=== PATIENT | female | born 1980 | race Caucasian/White ===

== ENCOUNTER 2018-11-22 15:59 | Inpatient (IN) ==
[2018-11-22] MEDS ORDERED: Isovue-370 500 ML INFUS..BTL IV ONE (16:09)
--- NOTE | 2018-11-22 16:10 | Emergency Department Note ---
Disposition Clinical Impression: Pleural effusion, Acute and chronic respiratory failure, Anxiety, Chronic anemia, Metastatic breast cancer, COPD with exacerbation Disposition: Admitted As Inpatient Condition: Undetermined General Adult HPI - General Chief complaint: ED Shortness of Breath/Dyspnea Stated complaint: JUSTIN Time Seen by Provider: 11/22/18 16:01 - Related Data Home Medications Medication Instructions Recorded Confirmed RX: Budesonide/Formoterol 80/4.5 1 puff PO BID 11/01/18 11/16/18 [Symbicort 80/4.5] Magnesium Oxide [Magnesium] 400 mg PO DAILY 11/16/18 11/16/18 Spironolactone [Aldactone] 25 mg PO DAILY 11/16/18 11/16/18 Previous Rx's Medication Instructions Recorded RX: Aspirin Enteric Coated 81 mg PO DAILY tablet. 11/06/18 [Aspirin EC] RX: Diltiazem CD (24hr) [Cardizem 240 mg PO DAILY #30 cap.er.24h 11/06/18 CD] ALPRAZolam [Xanax 0.25 MG Tablet] 0.25 mg PO Q8HR PRN 30 Days #90 11/16/18 tablet Docusate [Colace] 100 mg PO BID PRN #60 capsule 11/16/18 HYDROcodone/Acet 7.5/325 mg [[place] 1 tab PO TID 30 Days #90 tablet 11/16/18 7.5-325 mg] Prochlorperazine Maleate 10 mg PO Q8HR PRN 30 Days #90 11/16/18 [Compazine] tablet RX: Ondansetron [Zofran] 8 mg PO Q8HR 30 Days #90 tablet 11/16/18 ALPRAZolam [Xanax 0.5 MG Tablet] 0.5 mg PO TID PRN 30 Days #90 11/22/18 tablet Diaper,Brief,Adult, Disposable 1 each MC PRN PRN #1 pkg 11/22/18 [Depend Fit-Flex] Allergies Allergy/AdvReac Type Severity Reaction Status Date / Time adhesive tape Allergy Redness of Verified 11/16/18 12:49 Skin Past Medical History - Past Medical History Medical history: Reports: cancer Psychiatric history: Reports: no psych history - Social History Smoking Status: Former smoker Smokeless Tobacco Status: No Alcohol use: Reports: none Drug use: Reports: none Course Vital Signs Temperature 97.8 F 11/22/18 16:06 Pulse Rate 117 11/22/18 16:06 Respiratory Rate 22 11/22/18 16:06 Blood Pressure 164/97 11/22/18 16:06 O2 Sat by Pulse Oximetry 88 11/22/18 16:06 Temperature 97.8 F 11/22/18 16:06 Pulse Rate 111 11/22/18 21:46 Respiratory Rate 14 11/22/18 21:46 Blood Pressure 145/86 11/22/18 21:46 O2 Sat by Pulse Oximetry 97 11/22/18 21:46 Oxygen Delivery Oxygen Delivery Bipap Medical Decision Making - Lab Data Result diagrams: 11/22/18 21:24 11/22/18 16:09 Lab Results 11/22/18 11/22/18 11/22/18 Range/Units 16:09 16:09 21:24 WBC 3.5 L 4.7 (4.3-11.1) K/mcL RBC 3.77 L 3.78 L (3.82-4.97) M/mcL Hgb 9.8 L 9.7 L (11.5-15.4) g/dL Hct 32.5 L 32.7 L (35.3-44.9) % MCV 86.2 86.5 (83.0-100.0) fL MCH 26.0 L 25.7 L (28.0-33.3) pg MCHC 30.2 L 29.7 L (31.6-35.5) g/dL RDW 19.9 H 19.5 H (11.5-14.5) % Plt Count 156 162 (140-400) K/mcL MPV 9.7 10.2 (9.4-12.4) fL Immature Gran % 2.8 (0-4) % Seg Neutrophils % 84.7 % Lymphocytes % 7.7 % Monocytes % 4.5 % Eosinophils % 0.0 % Basophils % 0.3 % Neutrophils # 3.0 (1.6-8.9) K/mcL Lymphocytes # 0.3 L (0.6-4.6) K/mcL Monocytes # 0.2 (0.0-1.3) K/mcL Eosinophils # 0.0 (0.0-0.6) K/mcL Basophils # 0.0 (0.0-0.2) K/mcL PT (9.4-12.1) Seconds INR Heparin Anti-Xa, Unfract (0.30-0.70) IU/mL Sodium 138 (136-145) mEq/L Potassium 4.2 (3.5-5.1) mEq/L Chloride 99 (98-107) mEq/L Carbon Dioxide 32 H (23-29) mEq/L BUN 10 (6-20) mg/dL Creatinine 0.59 L (0.60-1.20) mg/dL Est GFR ( Amer) > 60 (> 60) Est GFR (Non-Af Amer) > 60 (> 60) BUN/Creatinine Ratio 17 (6-26) Glucose 119 H (70-105) mg/dL Calculated Osmolality 286 (280-300) Calcium 10.1 (8.6-10.3) mg/dL Troponin I 0.04 H* (< 0.04) ng/mL 11/22/18 Range/Units 21:24 WBC (4.3-11.1) K/mcL RBC (3.82-4.97) M/mcL Hgb (11.5-15.4) g/dL Hct (35.3-44.9) % MCV (83.0-100.0) fL MCH (28.0-33.3) pg MCHC (31.6-35.5) g/dL RDW (11.5-14.5) % Plt Count (140-400) K/mcL MPV (9.4-12.4) fL Immature Gran % (0-4) % Seg Neutrophils % % Lymphocytes % % Monocytes % % Eosinophils % % Basophils % % Neutrophils # (1.6-8.9) K/mcL Lymphocytes # (0.6-4.6) K/mcL Monocytes # (0.0-1.3) K/mcL Eosinophils # (0.0-0.6) K/mcL Basophils # (0.0-0.2) K/mcL PT 12.7 H (9.4-12.1) Seconds INR 1.1 Heparin Anti-Xa, Unfract 0.05 L (0.30-0.70) IU/mL Sodium (136-145) mEq/L Potassium (3.5-5.1) mEq/L Chloride (98-107) mEq/L Carbon Dioxide (23-29) mEq/L BUN (6-20) mg/dL Creatinine (0.60-1.20) mg/dL Est GFR ( Amer) (> 60) Est GFR (Non-Af Amer) (> 60) BUN/Creatinine Ratio (6-26) Glucose (70-105) mg/dL Calculated Osmolality (280-300) Calcium (8.6-10.3) mg/dL Troponin I (< 0.04) ng/mL Critical Care Time Critical Care Time: Yes Total Critical Care Time: 30 Attestation: The high probability of a clinically significant, sudden or life threatening deterioration of the [] system(s) required my full and direct attention, intervention and personal management. The aggregate critical care time was [] minutes. This time is in addition to time spent performing reported procedures but includes the following: [] Data Review and interpretation [] Patient assessment and monitoring of vital signs [] Documentation [] Medication orders and management Attestation Statement - Attestation Attestation: I examined this patient and my medical decision-making was reviewed with the Resident Physician. I agree with the documented findings, disposition and treatment plan as described except to the extent set forth below. [id number] time provided Patient arrives in the cancer center with dyspnea. She arrives by EMS. She was hypoxic prehospital. Upon arrival she has accessory muscle use for breathing. Increased work of breathing. Tachypnea and dyspnea noted. History of breast and lung cancer. Stat portable chest x-ray shows suspicion of a right-sided parapneumonic effusion. Trial of BiPAP therapy initiated
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
[2018-11-22] MEDS ORDERED: *HR* LORazepam 2 MG/ML VIAL IVP ONE (16:46)
[2018-11-22 17:08] LABS: Basophils % 0.3 %; Hematocrit 32.5 % (35.3-44.9); Hemoglobin 9.8 g/dL (11.5-15.4); Immature Granulocytes % 2.8 % (0-4); Lymphocytes # 0.3 K/mcL (0.6-4.6); Lymphocytes % 7.7 %; Mean Corpuscular HGB Conc 30.2 g/dL (31.6-35.5); Mean Corpuscular Volume 86.2 fL (83.0-100.0); Mean Platelet Volume 9.7 fL (9.4-12.4); Monocytes # 0.2 K/mcL (0.0-1.3); Monocytes % 4.5 %; Platelet Count 156 K/mcL (140-400); Red Blood Count 3.77 M/mcL (3.82-4.97); Red Cell Distribution Width 19.9 % (11.5-14.5); Segmented Neutrophils % 84.7 %
[2018-11-22 17:29] LABS: BUN/Creatinine Ratio 17 (6-26); Blood Urea Nitrogen 10 mg/dL (6-20); Calcium 10.1 mg/dL (8.6-10.3); Carbon Dioxide 32 mEq/L (23-29); Chloride 99 mEq/L (98-107); Glucose 119 mg/dL (70-105); Osmolality,Calculated 286 (280-300); Potassium 4.2 mEq/L (3.5-5.1); Sodium 138 mEq/L (136-145); eGFR For Non-African Americans > 60 (> 60)
[2018-11-22 17:46] LABS: Troponin I 0.04 ng/mL (< 0.04)
[2018-11-22] MEDS ORDERED: Aspirin 325 MG TABLET PO ONE (17:59)
[2018-11-22] MEDS ORDERED: Enoxaparin Weight Dosing SQ STA (18:04)
[2018-11-22] MEDS ORDERED: *HR* Enoxaparin 40 MG/0.4 ML SYRINGE SQ STA (18:09)
[2018-11-22] MEDS ORDERED: Furosemide 40 MG/4 ML VIAL IVP ONE (18:19)
[2018-11-22] MEDS ORDERED: *HR* Enoxaparin 120 MG/0.8 ML SYRINGE SQ STA (20:56)
[2018-11-22 21:36] LABS: Hematocrit 32.7 % (35.3-44.9); Hemoglobin 9.7 g/dL (11.5-15.4); Mean Corpuscular HGB Conc 29.7 g/dL (31.6-35.5); Mean Corpuscular Hemoglobin 25.7 pg (28.0-33.3); Mean Corpuscular Volume 86.5 fL (83.0-100.0); Mean Platelet Volume 10.2 fL (9.4-12.4); Platelet Count 162 K/mcL (140-400); Red Blood Count 3.78 M/mcL (3.82-4.97); Red Cell Distribution Width 19.5 % (11.5-14.5)
[2018-11-22 21:44] LABS: Heparin anti-factor XA UFH 0.05 IU/mL (0.30-0.70); INR 1.1; Prothrombin Time 12.7 Seconds (9.4-12.1)
[2018-11-22] MEDS: Heparin 25,000 UNIT/500 ML D5W 25,000 UNIT/500 ML BAG IVC SCH (22:08)
[2018-11-22] MEDS: *HR* Heparin 5,000 UNIT/ML VIAL IVP PRN (22:09)
[2018-11-22] MEDS ORDERED: Naloxone 0.4 MG/ML INJ IVP PRN (22:19)
[2018-11-22] MEDS ORDERED: Acetaminophen 325 MG TABLET PO PRN (22:19)
[2018-11-22] MEDS ORDERED: Albuterol 2.5 MG/3 ML NEBULIZER IH PRN (22:27)
[2018-11-22] MEDS ORDERED: Ondansetron 4 MG/2 ML VIAL IVP PRN (22:27)
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
[2018-11-23] MEDS: Ipratropium/Albuterol Neb 3 ML IH SCH ×4 (04:24→22:39)
[2018-11-23 05:03] LABS: Hemoglobin 9.5 g/dL (11.5-15.4); Immature Granulocytes % 0.7 % (0-4); Lymphocytes # 0.2 K/mcL (0.6-4.6); Lymphocytes % 3.4 %; Mean Corpuscular HGB Conc 29.7 g/dL (31.6-35.5); Mean Corpuscular Hemoglobin 25.9 pg (28.0-33.3); Mean Corpuscular Volume 87.2 fL (83.0-100.0); Mean Platelet Volume 10.8 fL (9.4-12.4); Monocytes # 0.3 K/mcL (0.0-1.3); Monocytes % 4.5 %; Neutrophils # 5.3 K/mcL (1.6-8.9); Nucleated Red Blood Cells 0.5 /100 WBC (0); Platelet Count 163 K/mcL (140-400); Red Blood Count 3.67 M/mcL (3.82-4.97); Red Cell Distribution Width 19.5 % (11.5-14.5); Segmented Neutrophils % 91.4 %
[2018-11-23 05:23] LABS: Alanine Aminotransferase 164 Units/L (7-52); Albumin 3.4 g/dL (3.5-5.7); Albumin/Globulin Ratio 1.2 (1.1-2.2); Alkaline Phosphatase 418 Units/L (34-104); Aspartate Amino Transferase 142 Units/L (13-39); BUN/Creatinine Ratio 22 (6-26); Bilirubin,Total 0.7 mg/dL (0.3-1.0); Blood Urea Nitrogen 13 mg/dL (6-20); Calcium 9.8 mg/dL (8.6-10.3); Carbon Dioxide 31 mEq/L (23-29); Chloride 98 mEq/L (98-107); Globulin 2.9 g/dL (2.4-3.5); Glucose 120 mg/dL (70-105); Magnesium 2.1 mg/dL (1.6-2.6); Osmolality,Calculated 287 (280-300); Potassium 4.2 mEq/L (3.5-5.1); Sodium 138 mEq/L (136-145); Total Protein 6.3 g/dL (6.4-8.9); eGFR For Non-African Americans > 60 (> 60)
[2018-11-23] MEDS ORDERED: *HR* Heparin 5,000 UNIT/ML VIAL IVP PRN (09:55)
[2018-11-23 10:31] LABS: Lactate Dehydrogenase 953 Units/L (140-271)
[2018-11-23] MEDS: *HR* Heparin 5,000 UNIT/ML VIAL IVP PRN (14:35)
--- NOTE | 2018-11-23 15:11 | Internal Med Progress Note ---
Hospitalist Progress Note - Encounter Date of Encounter: 11/23/18 Time of Encounter: 11:00 - Subjective Interval History: Patient continues to have significant shortness of breath and feels really anxious. At home she takes an extra which was prescribed by her oncologist for anxiety episodes. She is still not able to lie flat supine position. Remains on 15 L O2 supplementation. Denies any chest pain. Remains on IV heparin drip. - Exam Vitals: Temp Pulse Resp BP Pulse Ox 98.0 F 118 16 165/101 98 11/23/18 11:43 11/23/18 11:43 11/23/18 11:43 11/23/18 11:43 11/23/18 11:43 Exam: General: Patient is alert, severe distress, morbidly obese, oriented 3 ENT: Mucous membranes moist Respiratory: Bilateral wheezing, decreased breath sounds at both bases. Cardiovascular: Tachycardia. s1 and s2 normal No clicks, rubs, gallops, or murmurs. Bilateral pitting pedal edema Abdomen: Abdomen is soft, nontender. Bowel sounds are present Musculoskeletal: Spontaneously moving all extremities Skin: warm, dry, intact. Neuro: Alert oriented x 3 normal cranial nerves, no focal deficits - Assessment and Plan (1) Acute and chronic respiratory failure Current Visit: Yes Status: Acute Assessment and Plan: Acute on chronic respiratory failure. Most likely related to metastatic breast cancer with metastases to the lung. Patient has a solid mass for which she underwent radiation treatment before. Recommend CT scan of the chest but patient unable to lie in the supine position to obtain this study. Continue treatment symptomatically. Also given her history of cancer, high risk for venous thromboembolism. Venous Dopplers of the lower extremities were negative for DVT. Remains at high risk for complications (2) Metastatic breast cancer Current Visit: Yes Status: Chronic Assessment and Plan: Consulted oncology for recommendations. (3) Pleural effusion Current Visit: Yes Status: Chronic Assessment and Plan: Attempted thoracentesis on the right side today but unsuccessful. (4) Pulmonary embolism Current Visit: Yes Status: Suspected Assessment and Plan: Patient being treated with IV heparin due to high suspicion for PE. Venous Doppler of lower extremities negative for DVT. (5) DVT prophylaxis Current Visit: Yes Status: Acute (6) Pulmonary edema Current Visit: Yes Status: Acute Assessment and Plan: Chest x-ray showed pulmonary edema. We will continue Lasix. Mild troponin elevation trending down. Likely demand ischemia. Echocardiogram shows EF of 65-70%. (7) COPD (chronic obstructive pulmonary disease) Current Visit: Yes Status: Acute Assessment and Plan: Patient has bilateral wheezing. Continue bronchodilators. Also add Solu-Medrol as her rate due to respiratory failure could be related to COPD exacerbation also. DVT Prophylaxis: On IV heparin - Time Spent with Patient Total time spent is greater than 50% in coordination of care (as documented) at patient's floor/unit and/or counseling patient: Internal Medicine: Result - Labs CBC & Chem 7: 11/23/18 04:50 11/23/18 04:50 Labs: Short CBC 11/22/18 11/22/18 11/23/18 Range/Units 16:09 21:24 04:50 WBC 3.5 L 4.7 5.8 (4.3-11.1) K/mcL Hgb 9.8 L 9.7 L 9.5 L (11.5-15.4) g/dL Hct 32.5 L 32.7 L 32.0 L (35.3-44.9) % Plt Count 156 162 163 (140-400) K/mcL Neutrophils # 3.0 5.3 (1.6-8.9) K/mcL BMP 11/22/18 11/23/18 16:09 04:50 Sodium 138 138 Potassium 4.2 4.2 Chloride 99 98 Carbon Dioxide 32 H 31 H BUN 10 13 Creatinine 0.59 L 0.59 L Glucose 119 H 120 H Calcium 10.1 9.8 Cardiac Enzymes 11/22/18 11/22/18 11/23/18 Range/Units 16:09 22:30 04:50 Troponin I 0.04 H* 0.04 H* 0.03 (< 0.04) ng/mL Liver Function 11/23/18 Range/Units 04:50 Total Bilirubin 0.7 (0.3-1.0) mg/dL AST 142 H (13-39) Units/L ALT 164 H (7-52) Units/L Alkaline Phosphatase 418 H (34-104) Units/L Albumin 3.4 L (3.5-5.7) g/dL - ABG Interpretation ABG results: PT/INR, D-dimer PT 12.7 Seconds (9.4-12.1) H 11/22/18 21:24 - Impressions Impressions Chest X-Ray 11/22/18 16:01 IMPRESSION: 1. Moderate to large right-sided pleural effusion. 2. Radiographic findings suggesting increasing pulmonary edema within the left lung. D/ / Thad Hurt / Thad Hurt Interpreting Provider: Thad Hurt Echocardiogram 11/23/18 22:24 Impressions: LVEF 65-70%. Normal LV chamber size, wall thickness and function. Indeterminate diastolic function. Normal right ventricular structure and function. Unable to estimate RVSP due to lack of TR jet. No significant valvular dysfunction. Left Ventricular Wall Motion: Rest Echo Findings All wall segments showed normal motion. Findings: Study Quality * Technically sub-optimal due to clinical status. ECG Findings * Sinus tachycardia. Left Ventricle * LVEF 65-70%. * Normal LV chamber size, wall thickness and function. * Indeterminate diastolic function. Right Ventricle * Normal right ventricular structure and function. Left Atrium * Normal left atrial size. Right Atrium * Normal right atrial size. Aortic Valve * Aortic valve not well visualized. * No aortic regurgitation. * No aortic stenosis. Mitral Valve * Normal mitral valve structure and function. * No mitral stenosis. * No mitral regurgitation. Tricuspid Valve * Normal tricuspid valve structure and function. * No tricuspid regurgitation. * Unable to estimate RVSP due to lack of TR jet. Pulmonic Valve * Pulmonic valve not well visualized. Aorta * Normally sized aortic root. Pericardium * The pericardium appears normal. IVC * The IVC is not well evaluated. Pulmonary Artery * Pulmonary artery not well visualized. Consult Discharge Plan - Plan Referrals: Ish Delgado DO [Primary Care Provider] - (1) Acute and chronic respiratory failure Qualifiers: Respiratory failure complication: hypoxia Qualified Code(s): J96.21 - Acute and chronic respiratory failure with hypoxia (4) Pulmonary embolism Qualifiers: Pulmonary embolism type: unspecified Chronicity: acute Acute cor pulmonale presence: without acute cor pulmonale Qualified Code(s): I26.99 - Other pulmona ry embolism without acute cor pulmonale (6) Pulmonary edema Qualifiers: Chronicity: acute Qualified Code(s): J81.0 - Acute pulmonary edema (7) COPD (chronic obstructive pulmonary disease) Qualifiers: COPD type: COPD with acute exacerbation Qualified Code(s): J44.1 - Chronic obstructive pulmonary disease with (acute) exacerbation
[2018-11-23] MEDS: *HR* HYDROcodone/Acet 7.5/325 mg TABLET PO PRN (16:12)
[2018-11-23] MEDS: methylPREDNISolone 125 MG/2 ML VIAL IVP SCH (16:58)
[2018-11-23] MEDS: Diltiazem CD (24hr) 240 MG CAPSULE PO SCH (16:59)
[2018-11-23] MEDS: Furosemide 40 MG/4 ML VIAL IVP SCH (16:59)
[2018-11-23] MEDS: Heparin 25,000 UNIT/500 ML D5W 25,000 UNIT/500 ML BAG IVC SCH (17:01)
[2018-11-23] MEDS: Levalbuterol Neb 1.25 MG/3 ML IH SCH ×2 (17:46→22:40)
--- NOTE | 2018-11-23 18:59 | Oncology Inp Consult Note ---
<Jasmina Lake L - Last Filed: 11/23/18 19:30> Date of Encounter: 11/23/18 Time of Encounter: 17:30 Assessment and Plan (1) Acute and chronic respiratory failure Status: Acute Assessment and plan: Chest x-ray on admission revealed moderate to large right-sided pleural effusion and increasing pulmonary edema within the left lung. Patient is unable to lay flat for any other chest imaging Opacification of the right hemithorax is suspected to be related to volume loss from bronchial compression of either right upper lobe versus right mainstem bronchus from extrinsic compression of metastatic adenopathy or tumor burden. She has had failed failed attempted thoracentesis Do not suspect her symptoms are related to PE and will discontinue heparin gtt As discussed in HPI, she is s/p palliative radiotherapy to right mediastinum/hilum on 11/03/2018 Continue to treat supportively with diuresis, solumedrol and bronchodialators She presented on 15L High flow O2 and is down to 11L high flow O2 this evening, she does report some mild improvement in her SOB since presentation Should she decompensate at any time we would recommend transfer to a tertiary care center. CODE STATUS and intubation were discussed with patient today. Patient would prefer not to be intubated and understands that her likelihood of liberation from ventilator would be very small. She however is not decided on changing her CODE STATUS at this time and will discuss further with her mother who will be arriving tomorrow. Qualifiers: Respiratory failure complication: hypoxia Qualified Code(s): J96.21 - Acute and chronic respiratory failure with hypoxia (2) Metastatic breast cancer Status: Chronic Assessment and plan: Treatment as summarized in history of present illness She is not interested in hospice and wishes to pursue any treatment options available. Status post cycle 2, week 2 carboplatin and gemcitabine on 11/22/2017 - Data of Consult Requesting Physician: Beverley Simon MD Primary Care Provider: Ish Delgado DO - Consult Narrative Reason for consult: Metastatic breast cancer History of present illness: Ms. Perez is a 38 year old female diagnosed with stage IV metastatic high-grade breast cancer that is ER <1%, IA <1% and HER-2/yossi negative. This patient was diagnosed in previously treated at [facility] with Dr. Barnard. 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 She had a PET scan on 03/07/2018 which was negative for metastatic disease. She began cycle 1 day 1 neoadjuvant ddAC on 04/07/2018, foll owed by cycle 1 day 1 neoadjuvant ddTaxol on 05/13/2018. 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 5.2 cm. Negative margins. High grade DCIS. 14 lymph nodes involved with cancer +1 with micrometastatic disease (15/21 involved nodes). Left breast with benign tissue 0 over 1 lymph nodes involved. Final staging [id number]. Initially she was planned for adjuvant Xeloda however this was delayed secondary to delayed wound healing. She then underwent restaging scans in August and September which had revealed evidence of widespread metastatic disease with large paratracheal and right hilar lymphadenopathy, several small pulmonary nodules, collapse and consolidation of the right upper lobe secondary to soft tissue tumor lymphadenopathy in the right hilum compressing the right upper lobe bronchus, mediastinal lymphadenopathy and multiple low density liver lesions. In October she was admitted to [facility] for progressive hypoxia and had a bronchoscopy with a bus on 10/19/2018 which was positive for metastatic carcinoma. Procedure was complicated by inability to extubate and admission to MICU. At her outpatient appointment with Dr. Barnard on 10/24/2018 the plan was made to initiate chemotherapy with carboplatin and gemcitabine. She is planning to transfer care closer to home. She was admitted to [facility] around 11/10/2018 for increased shortness of breath and hypoxia. We were consulted at this time to establish care. During this admission she underwent palliative radiotherapy to the right mediastinum/hilum on 11/03/2018. She has followed with Dr. Atwood as an outpatient and is status post cycle 1, week 2 of gemcitabine on 11/22/2018. She completed her gemcitabine however shortly after her infusion she began experiencing increased shortness of breath with hypoxia. She was then transferred to the emergency room for admission. She presented to the ER with acute on chronic respiratory failure, tachycardia and hypoxia and was placed on 15 L high flow oxygen. She had a chest x-ray which revealed moderate to large right-sided pleural effusion and increasing pulmonary edema within the left lung. Thoracentesis was attempted however unsuccessful (she had previous thoracentesis during prior admission with drainage of only about 3-5ml fluid). She is unable to a flat long enough to tolerate any chest imaging. She was prophylactically placed on a heparin drip for suspicion of PE. Echocardiogram shows EF of 65-70%. Venous Dopplers of bilateral lower extremities were negative. Past Med Surg Social Fam HX - Past Medical History Medical history: cancer Additional medical history: breast cancer with mets Psychiatric history: no psych history - Past Surgical History Surgical History: cancer surgery, other Additional surgical history: DOUBLE MASTECTOMY WITH LYMPH NODE REMOVAL FROM RIGHT SIDE. - Social History Smoking Status: Former smoker Smokeless Tobacco Status: No Alcohol use: none Drug use: none - Family History Mother Living Status: Still Living Hx Family Endocrine Disorder: Yes (DM) Father Living Status: Still Living Hx Family Respiratory Disorders: Yes (COPD) Medications and Allergies Budesonide/Formoterol 80/4.5 [Symbicort 80/4.5] 1 puff PO BID 11/01/18 [History] Aspirin Enteric Coated [Aspirin EC] 81 mg PO DAILY tablet. 11/06/18 [Rx] Diltiazem CD (24hr) [Cardizem CD] 240 mg PO DAILY #30 cap.er.24h 11/06/18 [Rx] Docusate [Colace] 100 mg PO BID PRN #60 capsule 11/16/18 [Rx] Magnesium Oxide [Magnesium] 400 mg PO DAILY 11/16/18 [History] Ondansetron [Zofran] 8 mg PO Q8HR 30 Days #90 tablet 11/16/18 [Rx] Prochlorperazine Maleate [Compazine] 10 mg PO Q8HR PRN 30 Days #90 tablet 11/16/18 [Rx] Spironolactone [Aldactone] 25 mg PO DAILY 11/16/18 [History] ALPRAZolam [Xanax 0.5 MG Tablet] 0.5 mg PO TID PRN 30 Days #90 tablet 11/22/18 [Rx] CARBOplatin [Carboplatin] 0 mg IV AD 11/23/18 [History] Gemcitabine HCl [Gemzar] 0 mg IV AD 11/23/18 [History] HYDROcodone/Acet 7.5/325 mg [Coolidge 7.5-325 mg] 1 tab PO TID PRN 11/23/18 [History] Levalbuterol Neb [Xopenex Neb] 3 ml IH Q6H 11/23/18 [History] Omeprazole [PriLOSEC] 20 mg PO DAILY 11/23/18 [History] Allergy/AdvReac Type Severity Reaction Status Date / Time adhesive tape Allergy Redness of Verified 11/16/18 12:49 Skin Constitutional: Present: fatigue, weakness. Absent: anorexia, chills, fever(s), weight loss Eyes: Absent: change in vision Nose, mouth and throat: Absent: dysphagia, odynophagia Cardiovascular: Absent: chest pain, palpitations Respiratory: Present: cough, dyspnea. Absent: hemoptysis Additional comments: orthopnea Gastrointestinal: Absent: change in bowel habits, nausea, vomiting Genitourinary: Absent: dysuria, hematuria Musculoskeletal: Present: muscle weakness Integumentary: Absent: rash, wounds Neurological: Absent: focal weakness, frequent falls Hematologic/Lymphatic: Present: as per HPI Oncology - Exam - Constitutional General appearance: cooperative, obese, no febrile Exam: mild distress - Head Head exam: Present: atraumatic - ENT ENT exam: Present: mucous membranes moist, normal oropharynx - Respiratory Respiratory exam: Present: decreased breath sounds, rhonchi Additional comments: Labored breathing, patient has severe orthopnea which requires her to stay in a complete upright position at all times - Cardiovascular Cardiovascular exam: Present: RRR, +S1, +S2, tachycardia - GI/Abdominal GI/Abdominal exam: Present: normal bowel sounds, soft. Absent: guarding, rebound, tenderness - Extremities Exam Extremities exam: Absent: calf tenderness Additional comments: 2+pitting edema to BLE, generalized edema, edema noted to bilateral hands R>L - Neurological Exam Neurological exam: Present: alert, oriented X3, no focal deficits, strengths equal and symetr throughout - Psychiatric Psychiatric exam: Present: anxious - Skin Skin exam: Present: dry, intact, normal color, warm Consult Discharge Plan - Plan Referrals: Ish Delgado DO [Primary Care Provider] - Inpatient Charges Provider: Dr. Adams Ko <Jatinder Ko - Last Filed: 11/24/18 07:16> Date of Encounter: 11/23/18 - Data of Consult Requesting Physician: Beverley Simon MD Primary Care Provider: Ish Delgado DO - Attending Attestation I have seen and examined Ms. Perez and agree with the assessment and plan put in place by Ms. Lake. Bev's unfortunate 38-year-old woman who has rapidly pr ogressive, aggressive triple negative breast cancer. Soon after completion of surgery, she developed lung and liver metastases. Most recent imaging in late September and early October revealed diffuse liver metastases as well as a right mediastinal mass causing extrinsic compression on the right airway area and this has led to complete collapse of the right lung. There is been multiple attempts , including today, to drain what is believed to be a pleural effusion. However, this is felt to be atelectatic lung. She is acutely short of breath, however this is improving. There may be a component of anxiety to this as well. She is unable to lie flat for further imaging. She has been placed on heparin for the possibility of venous thrombosis. She is currently undergoing palliative chemot herapy with carboplatin and gemcitabine under care of my partner, Dr. Atwood. Her last dose of therapy was yesterday prior to hospitalization. Unfortunately, there are not many therapeutic maneuvers we can offer. As this is an extrinsic mass causing compression, stenting and laser therapy would not be of benefit. I have discussed this case with radiation oncology and there may be an option for further radiation therapy to this right lung. This will be discussed depending upon her course over the evening. Surgical intervention would not be beneficial. We discussed end-of-life management including CODE STATUS. I have recommended strongly against intubation as she would not be extubatable. She is currently a full code and was discussed this with her mother prior to making a final decision. As we have a cause of her hypoxia, she may discontinue her heparin drip. We will reevaluate tomorrow prior to making further decisions. We will likely consider palliative care consultation at that time as well. Inpatient Charges Provider: Dr. Adams Ko Consult - Inpatient: [id number]
[2018-11-23] MEDS: ALPRAZolam 0.5 MG TABLET PO PRN (21:52)
[2018-11-24] MEDS: *HR* HYDROcodone/Acet 7.5/325 mg TABLET PO PRN (00:26)
[2018-11-24] MEDS: methylPREDNISolone 125 MG/2 ML VIAL IVP SCH ×2 (00:26→07:59)
--- NOTE | 2018-11-24 03:10 | Event Note ---
Date of Encounter: 11/24/18 Time of Encounter: 02:34 Notified by nurse of patient with increased heart rate 150-160s. History of afib and afib rvr on cardizem daily. Assessed patient at bedside, currently asymptomatic, EKG obtained shows afib with RVR. Other vitals stable. Will start cardizem drip and hold PO cardizem.
[2018-11-24] MEDS: Ipratropium/Albuterol Neb 3 ML IH SCH ×4 (04:21→22:21)
[2018-11-24] MEDS: Levalbuterol Neb 1.25 MG/3 ML IH SCH (04:21)
[2018-11-24 05:55] LABS: Hematocrit 30.5 % (35.3-44.9); Hemoglobin 9.2 g/dL (11.5-15.4); Mean Corpuscular HGB Conc 30.2 g/dL (31.6-35.5); Mean Corpuscular Hemoglobin 26.4 pg (28.0-33.3); Mean Corpuscular Volume 87.4 fL (83.0-100.0); Mean Platelet Volume 11.5 fL (9.4-12.4); Platelet Count 132 K/mcL (140-400); Red Blood Count 3.49 M/mcL (3.82-4.97); Red Cell Distribution Width 19.6 % (11.5-14.5)
[2018-11-24 06:22] LABS: Lymphocytes # 0.4 K/mcL (0.6-4.6); Neutrophils # 8.4 K/mcL (1.6-8.9); Platelet Estimate Normal (Normal)
[2018-11-24 06:23] LABS: Anisocytosis 1+ (Not Present)
[2018-11-24 06:39] LABS: BUN/Creatinine Ratio 27 (6-26); Blood Urea Nitrogen 16 mg/dL (6-20); Calcium 9.5 mg/dL (8.6-10.3); Carbon Dioxide 33 mEq/L (23-29); Chloride 99 mEq/L (98-107); Glucose 218 mg/dL (70-105); Osmolality,Calculated 298 (280-300); Potassium 4.3 mEq/L (3.5-5.1); Sodium 140 mEq/L (136-145); eGFR For Non-African Americans > 60 (> 60)
[2018-11-24] MEDS ORDERED: *HR* Metoprolol 5 MG/5 ML VIAL IVP ONE (07:41)
[2018-11-24] MEDS: Furosemide 40 MG/4 ML VIAL IVP SCH ×2 (07:59→17:28)
[2018-11-24] MEDS ORDERED: *HR* HYDROcodone/Acet 7.5/325 mg TABLET PO PRN (08:03)
[2018-11-24] MEDS: MethylPREDNISolone 40 MG/ML VIAL IVP SCH ×3 (08:12→23:43)
[2018-11-24] MEDS: Diltiazem CD (24hr) 240 MG CAPSULE PO SCH (10:02)
[2018-11-24] MEDS: Metoprolol XL (24 HR) Succ 50 MG TAB.ER.24H PO SCH (10:03)
[2018-11-24] MEDS: ALPRAZolam 0.5 MG TABLET PO PRN (10:15)
[2018-11-24] MEDS: Budesonide/Formoterol 80/4.5 MDI IH SCH ×2 (10:43→22:21)
[2018-11-24] MEDS ORDERED: Isovue-370 500 ML INFUS..BTL IV ONE (13:18)
[2018-11-24] MEDS ORDERED: ALPRAZolam 0.5 MG TABLET PO ONE (14:25)
[2018-11-24] MEDS ORDERED: *HR* Heparin 5,000 UNIT/ML VIAL IVP ONE (16:04)
[2018-11-24] MEDS ORDERED: *HR* Heparin 5,000 UNIT/ML VIAL IVP PRN ×2 (16:04)
--- NOTE | 2018-11-24 16:10 | Oncology Inp Progress Note ---
<Jasmina Lake L - Last Filed: 11/25/18 09:41> Date of Encounter: 11/24/18 Time of Encounter: 13:00 (1) Acute and chronic respiratory failure Current Visit: Yes Status: Acute Assessment and plan: Chest x-ray on admission revealed moderate to large right-sided pleural effusion and increasing pulmonary edema within the left lung. Opacification of the right hemithorax is suspected to be related to volume loss from bronchial compression of either right upper lobe versus right mainstem bronchus from extrinsic compression of metastatic adenopathy or tumor burden. She has had two failed attempted thoracentesis S/P palliative radiotherapy to right mediastinum/hilum on 11/03/2018 She presented on 15L High flow O2 and is down to 9L high flow O2 this evening, she does report some mild improvement in her SOB since presentation and clinically appears to have less labored respirations Following discussions in regards to code status, she has transitioned to DNR-CCA DNI She was able to tolerate CTA chest today which was negative for PE, however, does reveal extensive disease burden with encasement of pulmonary arteries and bronchi with postobstructive changes in the right upper lobe, moderate right pleural effusion, multiple pulmonary nodules, findings likely representing worsening carcinomatosis. Will discuss findings with patient tomorrow as well as continued discussions in regards to goals of care Qualifiers: Respiratory failure complication: hypoxia Qualified Code(s): J96.21 - Acute and chronic respiratory failure with hypoxia (2) Metastatic breast cancer Current Visit: Yes Status: Chronic Assessment and plan: Treatment as summarized in history of present illness Status post cycle 2, week 2 carboplatin and gemcitabine on 11/22/2017 CTA chest findings as above Oncology: Subj Interval history: Ms. Perez was assessed just as she returned from her CT scan. She tolerated her CT well. Multiple family members at bedside today. Overnight, Ms. Perez went into A-Fib w/ RVR with HR in 150's-160's. She was started on a cardizem gtt and is currently rate controlled with HR around 120. She denies chest pain, palpitations, nausea, vomiting, bowel changes, urinary complaint. She feels as though edema is improving to hands. Denies any signs or symptoms of bleeding. Shortness of breath continues to slightly improved per patient. Currently on 9 L high flow oxygen. - Constitutional General appearance: cooperative, obese, no febrile Exam: mild distress at baseline - Head Head exam: Present: atraumatic - ENT ENT exam: Present: mucous membranes moist, normal oropharynx - Respiratory Respiratory exam: Present: decreased breath sounds, rhonchi. Absent: respiratory distress - Cardiovascular Cardiovascular exam: Present: irregular rhythm - GI/Abdominal GI/Abdominal exam: Present: normal bowel sounds, soft. Absent: tenderness - Extremities Exam Extremities exam: Present: pedal edema. Absent: calf tenderness Additional comments: 1-2+ BLE edema - Neurological Exam Neurological exam: Present: alert, oriented X3, no focal deficits, strengths equ al and symetr throughout - Psychiatric Psychiatric exam: Present: normal affect, normal mood - Skin Skin exam: Present: dry, intact, normal color, warm Oncology: Obj Data - Labs CBC & Chem 7: 11/24/18 16:25 11/24/18 05:35 Consult Discharge Plan - Plan Instructions: Atrial Fibrillation (DC), Acute Respiratory Distress Syndrome (DC), Chronic Obstructive Pulmonary Disease (DC), Anemia (GEN) Referrals: Ish Delgado DO [Primary Care Provider] - 12/06/18 2:00 pm (Please follow-up as scheduled ) Prescriptions: Furosemide [Lasix] 20 mg PO DAILY #30 tablet RX: GuaiFENesin/Dextromethorphan [Tussin Dm Syrup] 10 ml PO Q4H PRN #1 syrup PRN Reason: Cough LORazepam Oral Conc [Ativan Oral Conc] 1 mg PO Q4H PRN 7 Days #15 mls PRN Reason: Anxiety RX: Metoprolol XL (24 HR) Succ [Toprol Xl] 50 mg PO DAILY #30 tab.er.24h RX: OXYCODONE Oral CONC [Oxycodone Oral Conc] 5 mg PO Q4H PRN 7 Days #15 ml PRN Reason: pain/dyspnea predniSONE [PredniSONE] 10 mg PO DAILY #20 tablet Inpatient Charges Provider: Dr. Adams Mcfarlane <Joann Mcfarlane - Last Filed: 11/25/18 17:14> Date of Encounter: 11/24/18 Oncology: Subj Interval history: I examined this patient and my medical decision-making was reviewed with the Advanced Practice Nurse, Jasmina lake. I agree with the documented findings, disposition and treatment plan as described except to the extent set forth below. Oncology: Obj Data - Labs CBC & Chem 7: 11/24/18 16:25 11/24/18 05:35 Inpatient Charges Provider: Dr. Adams Mcfarlane Follow up - Inpatient: [id number]
--- NOTE | 2018-11-24 16:24 | Palliative - Consult Note ---
Date of Encounter: 11/24/18 Time of Encounter: 15:20 - Assessment and Plan (1) Anxiety Current Visit: Yes Status: Acute Assessment and plan: Patient utilizing Xanax PRN. Utilized x3 last 24 hours. (2) Cancer associated pain Current Visit: Yes Status: Acute Assessment and plan: Patient states [place] is still helpful for discomfort. Utilized x2 last 24 hours. Continue and monitor (3) Goals of care, counseling/discussion Current Visit: Yes Status: Acute Assessment and plan: Long discussion with patient, mother, father, and aunt re: goals of care. Patient states she spoke with oncologist earlier this am, and desires to continue treatment for cancer as long as possible. She understands that her illness is not curable, and that eventually she will from her disease, but she desires to live as long as possible. We discussed what that might look like, and what her end of life wishes would be. She is adamant she does not w ant sustained on life support machines. We discussed code status at length, and she wants to change code status to DNR/DNI. State form completed and copies provided to mother and placed on medical record. I also discussed hospice care at length with them - the mother had some wrong information and thought she would have to be institutionalized to have hospice, so I did clarify that the goal of hospice would be to keep her in her home and lend support to family to care for her. Notified Dr. Gutierrez and Jasmina Lake [employer] Oncology of the above conversation. Will f/u in am. (4) Shortness of breath Current Visit: No Status: Acute (5) Metastatic breast cancer Current Visit: Yes Status: Chronic (6) Pleural effusion, right Current Visit: No Status: Acute Palliative-CN HPI - Data of Consult Consult date: 11/24/18 Requesting Physician: Ashley Gutierrez MD Primary Care Provider: Ish Delgado DO - Consult Narrative History of present illness: Ms. Perez is a 38 year old female who presented to hospital with c/o shortness of breath and hypoxia. She has a history of metastatic breast cancer diagnosed in 03/02 and had treatment and bilateral mastectomy under the care of Dr. Barnard at [facility]. PET scan of that month did not demonstrate metastatic disease, however, she did have several positive nodes involved and had restaging scans in August which demonstrated widespread metastatic disease. She was admitted to [facility] in Oct for hypoxic and had bronchoscopy with biopsy and this was also positive for metastatic disease. She decided to transition her care closer to home, and began treatments here at [facility]. She has had recent palliative radiation to the right mediastinum/hilum, and then began chemotherapy. Upon this admission, patient was suspected to have pulmonary embolus, dopplers negative, but was started on Heparin drip r/t clinical presentation. This has since been discontinued. She is still requiring high level of oxygen therapy. EF - 65-70%. They attempted thoracentesis, however, this was unsuccessful, and she has had difficulty lying flat for imaging. States that her anxiety makes her shortness of breath worse. Oncology has been following patient closely here. Upon my visit, she is sitting on side of bed with family present. She is talkative, and in good spirits. States that "I peed myself at the [facility], and became anxious and short of breath, and that's what landed me here.". Denies pain at present. Good oral intake and having BM's. CC: Ashley Gutierrez MD - Time Spent with Patient Time: Total time spent is greater than 50% in coordination of care (as documented) at patient's floor/unit and/or counseling patient: Time with patient: 60 minutes Past Med Surg Social Fam HX - Past Medical History Medical history: cancer Additional medical history: breast cancer with mets Psychiatric history: no psych history - Past Surgical History Surgical History: cancer surgery, other Additional surgical history: DOUBLE MASTECTOMY WITH LYMPH NODE REMOVAL FROM RIGHT SIDE. - Social History Smoking Status: Former smoker Smokeless Tobacco Status: No Alcohol use: none Drug use: none - Family History Mother Living Status: Still Living Hx Family Endocrine Disorder: Yes (DM) Father Living Status: Still Living Hx Family Respiratory Disorders: Yes (COPD) Medications and Allergies Budesonide/Formoterol 80/4.5 [Symbicort 80/4.5] 1 puff PO BID 11/01/18 [History] Aspirin Enteric Coated [Aspirin EC] 81 mg PO DAILY tablet. 11/06/18 [Rx] Diltiazem CD (24hr) [Cardizem CD] 240 mg PO DAILY #30 cap.er.24h 11/06/18 [Rx] Docusate [Colace] 100 mg PO BID PRN #60 capsule 11/16/18 [Rx] Magnesium Oxide [Magnesium] 400 mg PO DAILY 11/16/18 [History] Ondansetron [Zofran] 8 mg PO Q8HR 30 Days #90 tablet 11/16/18 [Rx] Prochlorperazine Maleate [Compazine] 10 mg PO Q8HR PRN 30 Days #90 tablet 11/16/18 [Rx] Spironolactone [Aldactone] 25 mg PO DAILY 11/16/18 [History] ALPRAZolam [Xanax 0.5 MG Tablet] 0.5 mg PO TID PRN 30 Days #90 tablet 11/22/18 [Rx] CARBOplatin [Carboplatin] 0 mg IV AD 11/23/18 [History] Gemcitabine HCl [Gemzar] 0 mg IV AD 11/23/18 [History] HYDROcodone/Acet 7.5/325 mg [[place] 7.5-325 mg] 1 tab PO TID PRN 11/23/18 [History] Levalbuterol Neb [Xopenex Neb] 3 ml IH Q6H 11/23/18 [History] Omeprazole [PriLOSEC] 20 mg PO DAILY 11/23/18 [History] Allergy/AdvReac Type Severity Reaction Status Date / Time adhesive tape Allergy Redness of Verified 11/16/18 12:49 Skin All systems: reviewed and no additional remarkable complaints except as stated (shortness of breath, prod cough, anxiety) Palliative Care-Exam - Constitutional Vitals: Temp Pulse Resp BP Pulse Ox 97.7 F 103 18 115/83 99 11/24/18 10:43 11/24/18 10:43 11/24/18 10:43 11/24/18 10:43 11/24/18 10:43 General appearance: Present: febrile, cooperative, mild distress, obese - Head Head Exam: Present: normal inspection, normocephalic - Respiratory Additional comments: Wheezes and rhonchi throughout all lung delgado posteriorally - Cardiovascular Cardiovascular exam: Present: +S1, +S2 - GI/Abdominal Exam GI/Abdominal exam: Present: normal bowel sounds, soft - Extremities Exam Additional comments: 2-3+ edema lower extremities bilaterally - Neurological Exam Neurological exam: Present: alert, oriented X3, strengths equal and symetr throughout - Skin Skin exam: Present: dry, pallor, warm Internal Medicine - CN: Reslt - Labs CBC & Chem 7: 11/24/18 05:35 11/24/18 05:35 Labs: Short CBC 11/24/18 Range/Units 05:35 WBC 8.7 (4.3-11.1) K/mcL Hgb 9.2 L (11.5-15.4) g/dL Hct 30.5 L (35.3-44.9) % Plt Count 132 L (140-400) K/mcL Neutrophils # 8.4 (1.6-8.9) K/mcL BMP 11/24/18 05:35 Sodium 140 Potassium 4.3 Chloride 99 Carbon Dioxide 33 H BUN 16 Creatinine 0.60 Glucose 218 H Calcium 9.5 - ABG Interpretation ABG results: PT/INR, D-dimer PT 12.7 Seconds (9.4-12.1) H 11/22/18 21:24 - Impressions Impressions Chest Ultrasound 11/23/18 09:51 IMPRESSION: Small right pleural effusion identified on ultrasound. However, due to the small size of the effusion thoracentesis was not performed. D/ / German Alvares / German Alvares Interpreting Provider: German Alvares Chest X-Ray 11/24/18 08:23 IMPRESSION: Slight interval improvement of right pleural effusion. Otherwise stable chest. D/ / Kelley eLyva MD / Kelley Leyva MD Interpreting Provider: Kelley Leyva MD Chest CTA 11/24/18 13:18 IMPRESSION: 1. No evidence of acute pulmonary embolism. 2. Extensive tumor burden in the right upper chest with encasement of pulmonary arteries and bronchi with postobstructive changes in the right upper lobe. 3. Moderate right pleural effusion and lower lobe atelectatic changes worse compared with the previous evaluation. 4. Multiple pulmonary nodules bilaterally likely representing metastatic disease. 5. Increased interstitial markings bilaterally worse in the left lung likely representing carcinomatosis which is worse compared with the previous evaluation. 6. Redemonstration of lymphadenopathy. 7. Redemonstration of left adrenal metastasis. D/ / 11/24/2018 16:02:19 Pia Arnett MD / cyrus Interpreting Provider: Pia Arnett MD Consult Discharge Plan - Plan Referrals: Ish Delgado DO [Primary Care Provider] - Palliative Quality Palliative Quality: Screen for Code Status: Yes, Screen for Goals of Care: Yes, Screen for Pain: Yes, If Pain Regimen Started, Initiate Bowel Regimen: NA, Screen for Nausea/Vomitting: Yes Code Status: 11/22/18 22:19 Resuscitation Status: Active [RES] Routine Comment: Resuscitation Status: Full Code 11/24/18 14:58 DNR [Resuscitation Status: Active] [RES] Routine Comment: Resuscitation Status: [id number]
--- NOTE | 2018-11-24 16:34 | Internal Med Progress Note ---
Hospitalist Progress Note - Encounter Date of Encounter: 11/24/18 Time of Encounter: 10:45 - Subjective Interval History: Patient is feeling somewhat better today. Her oxygen requirement has improved. She is able to converse better and is less short of breath. Denies any fevers or chills overnight. No chest pain. She is still not able to lie down flat. - Exam Vitals: Temp Pulse Resp BP Pulse Ox 97.7 F 103 18 115/83 99 11/24/18 10:43 11/24/18 10:43 11/24/18 10:43 11/24/18 10:43 11/24/18 10:43 Exam: General: Patient is alert, mild distress, oriented x 3 ENT: Mucous membranes moist Respiratory: Improved air entry bilaterally. Mild wheezing bilaterally Cardiovascular: Regular rate and rhythm. s1 and s2 normal No clicks, rubs, gallops, or murmurs. No pedal edema Abdomen: Abdomen is soft, nontender. Bowel sounds are present Musculoskeletal: Spontaneously moving all extremities Skin: warm, dry, intact. Neuro: Alert oriented x 3 normal cranial nerves, no focal deficits - Assessment and Plan (1) Acute and chronic respiratory failure Current Visit: Yes Status: Acute Assessment and Plan: continue O2 supplementation. Respiratory failure is multifactorial. CT angiogram of the chest done today shows metastatic lung disease with concern for worsening changes including carcinomatosis. Oncology following. Will continue O2 supplementation and wean FiO2 as tolerated. (2) Atrial fibrillation Current Visit: Yes Status: Acute Assessment and Plan: Patient had rapid A. fib earlier this morning. Has been placed on IV Cardizem drip. IV Lopressor and her oral dose of Cardizem. Also started on Toprol-XL. Heart rate has improved since then. Started on IV heparin for anticoagulation given her severe tumor burden. (3) Metastatic breast cancer Current Visit: Yes Status: Chronic Assessment and Plan: Poor overall prognosis. Patient however wants to continue chemotherapy as long as she is able to tolerate attendants offered. Palliative care consulted to discuss hospice and consult appreciated. (4) Pleural effusion Current Visit: Yes Status: Chronic Assessment and Plan: Failed thoracentesis yesterday. No sample obtained. Most likely exudative effusion from metastatic cancer. (5) Pulmonary embolism Current Visit: Yes Status: Suspected Assessment and Plan: Ruled out. (6) DVT prophylaxis Current Visit: Yes Status: Acute (7) Pulmonary edema Current Visit: Yes Status: Acute Assessment and Plan: Increased interstitial lung markings appear to be carcinomatosis related. Will stop IV lasix. (8) COPD (chronic obstructive pulmonary disease) Current Visit: Yes Status: Acute Assessment and Plan: Continue treating with Solu-Medrol, and use bronchodilators as needed. - Time Spent with Patient Total time spent is greater than 50% in coordination of care (as documented) at patient's floor/unit and/or counseling patient: Internal Medicine: Result - Labs CBC & Chem 7: 11/24/18 16:25 11/24/18 05:35 Labs: Short CBC 11/24/18 Range/Units 05:35 WBC 8.7 (4.3-11.1) K/mcL Hgb 9.2 L (11.5-15.4) g/dL Hct 30.5 L (35.3-44.9) % Plt Count 132 L (140-400) K/mcL Neutrophils # 8.4 (1.6-8.9) K/mcL BMP 11/24/18 05:35 Sodium 140 Potassium 4.3 Chloride 99 Carbon Dioxide 33 H BUN 16 Creatinine 0.60 Glucose 218 H Calcium 9.5 - ABG Interpretation ABG results: PT/INR, D-dimer PT 12.7 Seconds (9.4-12.1) H 11/22/18 21:24 - Impressions Impressions Chest Ultrasound 11/23/18 09:51 IMPRESSION: Small right pleural effusion identified on ultrasound. However, due to the small size of the effusion thoracentesis was not performed. D/ / German Alvares / German Alvares Interpreting Provider: German Alvares Chest X-Ray 11/24/18 08:23 IMPRESSION: Slight interval improvement of right pleural effusion. Otherwise stable chest. D/ / Kelley Leyva MD / Kelley Leyva MD Interpreting Provider: Kelley Leyva MD Chest CTA 11/24/18 13:18 IMPRESSION: 1. No evidence of acute pulmonary embolism. 2. Extensive tumor burden in the right upper chest with encasement of pulmonary arteries and bronchi with postobstructive changes in the right upper lobe. 3. Moderate right pleural effusion and lower lobe atelectatic changes worse compared with the previous evaluation. 4. Multiple pulmonary nodules bilaterally likely representing metastatic disease. 5. Increased interstitial markings bilaterally worse in the left lung likely representing carcinomatosis which is worse compared with the previous evaluation. 6. Redemonstration of lymphadenopathy. 7. Redemonstration of left adrenal metastasis. D/ / 11/24/2018 16:02:19 Pia Arnett MD / cyrus Interpreting Provider: Pia Arnett MD Consult Discharge Plan - Plan Referrals: Ish Delgado DO [Primary Care Provider] - (1) Acute and chronic respiratory failure Qualifiers: Respiratory failure complication: hypoxia Qualified Code(s): J96.21 - Acute and chronic respiratory failure with hypoxia (2) Atrial fibrillation Qualifiers: Atrial fibrillation type: paroxysmal Qualified Code(s): I48.0 - Paroxysmal atrial fibrillation (5) Pulmonary embolism Qualifiers: Pulmonary embolism type: unspecified Chronicity: acute Acute cor pulmonale presence: without acute cor pulmonale Qualified Code(s): I26.99 - Other pulmonary embolism without acute cor pulmonale (7) Pulmonary edema Qualifiers: Chronicity: acute Qualified Code(s): J81.0 - Acute pulmonary edema (8) COPD (chronic obstructive pulmonary disease) Qualifiers: COPD type: COPD with acute exacerbation Qualified Code(s): J44.1 - Chronic obstructive pulmonary disease with (acute) exacerbation
[2018-11-24 16:39] LABS: Hematocrit 31.1 % (35.3-44.9); Hemoglobin 9.1 g/dL (11.5-15.4); Mean Corpuscular HGB Conc 29.3 g/dL (31.6-35.5); Mean Corpuscular Hemoglobin 25.9 pg (28.0-33.3); Mean Corpuscular Volume 88.6 fL (83.0-100.0); Mean Platelet Volume 10.4 fL (9.4-12.4); Platelet Count 109 K/mcL (140-400); Red Blood Count 3.51 M/mcL (3.82-4.97); Red Cell Distribution Width 19.4 % (11.5-14.5)
[2018-11-24 16:49] LABS: INR 1.1; Prothrombin Time 12.8 Seconds (9.4-12.1)
[2018-11-24] MEDS ORDERED: GuaiFENesin/Dextromethorphan TABLET PO PRN (17:09)
[2018-11-24] MEDS: Heparin 25,000 UNIT/500 ML D5W 25,000 UNIT/500 ML BAG IVC SCH (17:28)
--- NOTE | 2018-11-24 17:40 | Electrocardiograph Report ---
[place] [id number] Test Date: 2018-11-22 Pat Name: Bev Perez Department: EXAM21 Room: 2A35 Gender: F Communications Representative: : 1980 Requested By: Donato Flood Order Number: [id number] Reading MD: Rachana Griffith Measurements Intervals [place] Rate: 121 P: [place]: 150 QRS: 87 QRSD: 89 T: -6 QT: 307 QTc: 432 Interpretive Statements Sinus tachycardia Ventricular premature complex Low voltage, precordial leads Nonspecific T abnormalities Artifact in lead(s) I III aVL V2 and baseline wander in lead(s) V6 Electronically Signed On 11-24-2018 17:39:03 EST by Rachana Griffith
[2018-11-24] MEDS ORDERED: *HR* Heparin 5,000 UNIT/ML VIAL SQ SCH (18:00)
--- NOTE | 2018-11-24 22:02 | Electrocardiograph Report ---
[address] [address] Test Date: 2018-11-24 Pat Name: Bev Perez Department: 112 Room: [facility] Gender: F Rn Neurosurgical: WINNIE : 1980 Requested By: Leonid Benjamin Order Number: [id number] Reading MD: Rachana Griffith Measurements Intervals [place] Rate: 155 P: [place]: 0 QRS: 69 QRSD: 96 T: 269 QT: 266 QTc: 353 Interpretive Statements ATRIAL FIBRILLATION WITH RAPID VENTRICULAR RESPONSE NONSPECIFIC ST & T-WAVE ABNORMALITY Electronically Signed On 11-24-2018 22:00:32 EST by Rachana Griffith
[2018-11-25] MEDS: Ipratropium/Albuterol Neb 3 ML IH SCH ×2 (03:43→09:44)
[2018-11-25] MEDS ORDERED: Spironolactone 25 MG TABLET PO SCH (09:00)
[2018-11-25] MEDS ORDERED: Aspirin Enteric Coated 81 MG Tablet PO SCH (09:00)
[2018-11-25] MEDS ORDERED: Magnesium Oxide 400 MG TABLET PO SCH (09:00)
[2018-11-25] MEDS: Budesonide/Formoterol 80/4.5 MDI IH SCH (09:44)
[2018-11-25] MEDS: Diltiazem CD (24hr) 240 MG CAPSULE PO SCH (09:53)
[2018-11-25] MEDS: Metoprolol XL (24 HR) Succ 50 MG TAB.ER.24H PO SCH (09:54)
[2018-11-25] MEDS: MethylPREDNISolone 40 MG/ML VIAL IVP SCH ×2 (09:54→16:50)
[2018-11-25] MEDS: Levalbuterol Neb 1.25 MG/3 ML IH SCH ×2 (11:23→16:32)
[2018-11-25] MEDS: Heparin 25,000 UNIT/500 ML D5W 25,000 UNIT/500 ML BAG IVC SCH (11:53)
--- NOTE | 2018-11-25 13:19 | Oncology Inp Progress Note ---
<Joann Mcfarlane - Last Filed: 11/25/18 17:15> Date of Encounter: 11/25/18 Oncology: Subj Interval history: Discussed bedside with patient imaging findings showing progression of metastatic breast cancer. She is requiring high flow oxygen with rt lung collapse and possible carcinomatosis findings in the lungs. Palliative/hospice option discussed, followed by meeting with family by Jasmina Lake. I examined this patient and my medical decision-making was reviewed with the Advanced Practice Nurse, Jasmina Lake. I agree with the documented findings, disposition and treatment plan as described except to the extent set forth below. Oncology: Obj Data - Labs CBC & Chem 7: 11/24/18 16:25 11/24/18 05:35 Consult Discharge Plan - Plan Instructions: Atrial Fibrillation (DC), Acute Respiratory Distress Syndrome (DC), Chronic Obstructive Pulmonary Disease (DC), Anemia (GEN) Referrals: Ish Delgado DO [Primary Care Provider] - 12/06/18 2:00 pm (Please follow-up as scheduled ) Prescriptions: Furosemide [Lasix] 20 mg PO DAILY #30 tablet GuaiFENesin/Dextromethorphan [Tussin Dm Syrup] 10 ml PO Q4H PRN #1 syrup PRN Reason: Cough LORazepam Oral Conc [Ativan Oral Conc] 1 mg PO Q4H PRN 7 Days #15 mls PRN Reason: Anxiety Metoprolol Succinate [Toprol Xl] 100 mg PO DAILY #30 tab.er.24h OXYCODONE Oral CONC [Oxycodone Oral Conc] 5 mg PO Q4H PRN 7 Days #15 ml PRN Reason: pain/dyspnea predniSONE [PredniSONE] 10 mg PO DAILY #20 tablet Inpatient Charges Provider: Dr. Adams Mcfarlane Follow up - Inpatient: [id number] <Jasmina Lake - Last Filed: 11/25/18 18:20> Date of Encounter: 11/25/18 Time of Encounter: 12:30 (1) Acute and chronic respiratory failure Current Visit: Yes Status: Acute Assessment and plan: Chest x-ray on admission revealed moderate to large right-sided pleural effusion and increasing pulmonary edema within the left lung. Opacification of the right hemithorax is suspected to be related to volume loss from bronchial compression of either right upper lobe versus right mainstem bronchus from extrinsic compression of metastatic adenopathy or tumor burden. She has had two failed attempted thoracentesis S/P palliative radiotherapy to right mediastinum/hilum on 11/03/2018 She presented on 15L High flow O2 and is down to 8L high flow O2 this evening, she does report some mild improvement in her SOB since presentation and clinically appears to have less labored respirations Following discussions in regards to code status, she has transitioned to DNR-CCA DNI She was able to tolerate CTA chest yesterday which was negative for PE, however, does reveal extensive disease burden with encasement of pulmonary arteries and bronchi with postobstructive changes in the right upper lobe, moderate right pleural effusion, multiple pulmonary nodules, findings likely representing worsening carcinomatosis. Dr. Mcfarlane and myself discussed CT findings with patient at bedside which are concerning for progression of her cancer despite chemotherapy treatments. We are concerned that further chemotherapy may be of more risk than harm and that at this time we should reevaluate our plans of care. The hospice philosophy was introduced and discussed. Patient understands risks involved with continuing treatment and that this time treatment options may be offering her very little benefit. She wishes to have further discussions when her mom arrives later this afternoon. We will plan to bring him back sometime after 2 PM and meet with patient, patient's mother alongside palliative care. Update- at 2 PM meeting with patient and patient's mother we reviewed CT imaging at bedside. Goals of care were discussed along with concern for risk versus actual benefit of continuing chemotherapy in patients guarded condition. The hospice philosophy was again introduced. Patient and patient's mother have decided to go home with hospice. They understand that this will not include further chemotherapy treatments and they are at peace with this decision. They wish to go home as soon as possible and spend time with family and friends. Flavia, palliative care nurse practitioner, was present for this conversation and assisted to give information on hospice care. Flavia is working on the logistics for set up services with [facility]. Qualifiers: Respiratory failure complication: hypoxia Qualified Code(s): J96.21 - Acute and chronic respiratory failure with hypoxia (2) Metastatic breast cancer Current Visit: Yes Status: Chronic Assessment and plan: Treatment as summarized in history of present illness Status post cycle 2, week 2 carboplatin and gemcitabine on 11/22/2017 CTA chest findings as above indicate progression of disease. See above for discussion on goals of care Oncology: Subj Interval history: Ms. Perez was seen and examined at bedside. On side of bed. She is breathing a little bit more comfortably today on 8 L high flow oxygen. She has labored respirations at her baseline secondary to tumor burden. Her sister is at [facility]. Her mother's plan to come in later today and we are planning to have further detailed discussion in regards to her CTA findings goals of care at that time. She currently denies pain, chest pain, worsening shortness of breath or cough, fever, chills, signs or symptoms of bleeding, abdominal pain, diarrhea, constipation or urinary complaint. - Constitutional General appearance: cooperative, obese, no febrile Exam: mild respiratory distress at her baseline - Head Head exam: Present: atraumatic - ENT ENT exam: Present: mucous membranes moist, normal oropharynx - Respiratory Respiratory exam: Present: decreased breath sounds, rhonchi. Absent: respiratory distress - Cardiovascular Cardiovascular exam: Present: RRR, +S1, +S2 - GI/Abdominal GI/Abdominal exam: Present: normal bowel sounds, soft. Absent: rebound, tenderness - Extremities Exam Extremities exam: Present: pedal edema. Absent: calf tenderness Additional comments: Generalized edema, 1-2+ pitting bilateral lower extremity edema - Neurological Exam Neurological exam: Present: alert, oriented X3, no focal deficits, strengths equal and symetr throughout - Psychiatric Psychiatric exam: Present: anxious - Skin Skin exam: Present: dry, intact, pallor, warm Oncology: Obj Data - Labs CBC & Chem 7: 11/24/18 16:25 11/24/18 05:35 Inpatient Charges Provider: Dr. Adams Mcfarlane Follow up - Inpatient: [id number]
--- NOTE | 2018-11-25 15:09 | Event Note ---
Date of Encounter: 11/25/18 Time of Encounter: 15:00 Received report from Flavia FONSECA. Patient to discharge home with [facility] today. [facility] report completed. Patient filled [place] and Xanax on 11/17/18. Patient being discharged home with Ativan SL and Oxycodone, prescriptions sent to [facility] pharmacy electronically. May continue home [place]. Discharge packet to be faxed to [facility].
--- NOTE | 2018-11-25 15:54 | Palliative Progress Note ---
Date of Encounter: 11/25/18 Time of Encounter: 14:15 - Assessment and plan (1) Goals of care, counseling/discussion Current Visit: Yes Status: Acute Assessment and plan: Conducted bedside meeting with mother, dad, patient and patients sister. [place] CNP from Oncology discussed findings from recent CT scan. Patient informed of options for chemo but Oncologist feels that chemo would be of no benefit and would potentially make the patient sicker. Explained that cancer is now in both lungs, liver and kidney. Discussed hospice care if patient desired to not have chemo. Discussed goals of care for comfort approach and transition home and be surrounded by her family. Patient and mother discussed goals of care. Sister also participated in conversation and discussed the goals of transitioning home. I explained that given demographic location that [facility] would be an option. Family agreed to meet and discuss Hospice with [facility]. Called [facility] and Deni Brownlee CNP faxed pertinent documents to them for review. Patient terminal diagnosis is metastatic breast cancer. Family agree to meet with [facility] and desires to transition home this evening if possible. 1600 - [facility] arrived and conducting meeting with patient and family. Dr. Gutierrez updated. (2) Cancer associated pain Current Visit: Yes Status: Acute Assessment and plan: Patient has Lajas ordered. Using only 1 -2 tabs a day. Will add Oxycodone for hospice transition. (3) Acute and chronic respiratory failure Current Visit: Yes Status: Acute Assessment and plan: Patient receiving high flow O2, Simbicort and duonebs. Qualifiers: Qualified Code(s): J96.21 - Acute and chronic respiratory failure with hypoxia (4) Metastatic breast cancer Current Visit: Yes Status: Chronic (5) Pleural effusion, right Current Visit: No Status: Acute - Time Spent With Patient Total time spent is greater than 50% in coordination of care (as documented) at patient's floor/unit and/or counseling patient: Greater than 35 minutes - Subjective Interval history: Patient sitting up in bed. O2 at 7L high flow. Conducted bedside meeting with patient, mom, dad and sister. [place] CNP with Oncology present. - Constitutional Vitals: Abnormal lab results RBC 3.51 M/mcL (3.82-4.97) L 11/24/18 16:25 Hgb 9.1 g/dL (11.5-15.4) L 11/24/18 16:25 Hct 31.1 % (35.3-44.9) L 11/24/18 16:25 MCH 25.9 pg (28.0-33.3) L 11/24/18 16:25 MCHC 29.3 g/dL (31.6-35.5) L 11/24/18 16:25 RDW 19.4 % (11.5-14.5) H 11/24/18 16:25 Plt Count 109 K/mcL (140-400) L 11/24/18 16:25 Band Neutrophils % 10.0 % (0-4) H 11/24/18 05:35 Lymphocytes # 0.4 K/mcL (0.6-4.6) L 11/24/18 05:35 Nucleated RBCs/100 WBC 0.5 /100 WBC (0) H 11/23/18 04:50 Anisocytosis 1+ (Not Present) A 11/24/18 05:35 PT 12.8 Seconds (9.4-12.1) H 11/24/18 16:25 Carbon Dioxide 33 mEq/L (23-29) H 11/24/18 05:35 BUN/Creatinine Ratio 27 (6-26) H 11/24/18 05:35 Glucose 218 mg/dL (70-105) H 11/24/18 05:35 AST 142 Units/L (13-39) H 11/23/18 04:50 ALT 164 Units/L (7-52) H 11/23/18 04:50 Alkaline Phosphatase 418 Units/L (34-104) H 11/23/18 04:50 Lactate Dehydrogenase 953 Units/L (140-271) H 11/23/18 04:50 Serum Total Protein 6.3 g/dL (6.4-8.9) L 11/23/18 04:50 Albumin 3.4 g/dL (3.5-5.7) L 11/23/18 04:50 - Head Head exam: Present: atraumatic, normal inspection, normocephalic - Eye Eye exam: Present: PERRL Pupils: Present: PERRL - ENT ENT exam: Present: mucous membranes moist - Respiratory Respiratory exam: Present: decreased breath sounds - Expanded Respiratory Exam Location: decreased breath sounds: Left, Right, Lower - Cardiovascular Cardiovascular exam: Present: RRR, +S1, +S2, tachycardia - Expanded Cardiovascular Exam Peripheral pulses: 1+: Femoral (L) PM, Femoral (R) PM, Posterior Tibialis (L), Posterior Tibialis (R), Dorsalis Pedis (L) PM, Dorsalis Pedis (R) PM, 2+: Carotid (L) PM, Carotid (R) PM, Radial (L), Radial (R) - GI/Abdominal GI/Abdominal exam: Present: normal bowel sounds, soft - Rectal Rectal exam: Present: deferred - Extremities Exam Extremities exam: Present: pedal edema Additional comments: 3+ edema right leg and 2+ edema to right hand. - Neurological Exam Neurological exam: Present: alert, oriented X3 - Psychiatric Psychiatric exam: Present: normal affect - Skin Skin exam: Present: pallor, warm Palliative Quality Palliative Quality: Screen for Code Status: Yes, Screen for Goals of Care: Yes, Screen for Pain: Yes, If Pain Regimen Started, Initiate Bowel Regimen: NA, Screen for Nausea/Vomitting: Yes Code Status: 11/22/18 22:19 Resuscitation Status: Active [RES] Routine Comment: Resuscitation Status: Full Code 11/24/18 14:58 DNR [Resuscitation Status: Active] [RES] Routine Comment: Resuscitation Status: [id number] - Labs CBC & Chem 7: 11/24/18 16:25 11/24/18 05:35 Labs: Laboratory Results - last 24 hr 11/24/18 11/24/18 11/24/18 16:25 16:25 23:30 WBC 10.9 RBC 3.51 L Hgb 9.1 L Hct 31.1 L MCV 88.6 MCH 25.9 L MCHC 29.3 L RDW 19.4 H Plt Count 109 L MPV 10.4 PT 12.8 H INR 1.1 Heparin Anti-Xa, Unfract 0.00 L 0.93 H 11/25/18 11/25/18 06:00 11:58 WBC RBC Hgb Hct MCV MCH MCHC RDW Plt Count MPV PT INR Heparin Anti-Xa, Unfract 0.35 0.67 - Impressions Impressions Chest CTA 11/24/18 13:18 IMPRESSION: 1. No evidence of acute pulmonary embolism. 2. Extensive tumor burden in the right upper chest with encasement of pulmonary arteries and bronchi with postobstructive changes in the right upper lobe. 3. Moderate right pleural effusion and lower lobe atelectatic changes worse compared with the previous evaluation. 4. Multiple pulmonary nodules bilaterally likely representing metastatic disease. 5. Increased interstitial markings bilaterally worse in the left lung likely representing carcinomatosis which is worse compared with the previous evaluation. 6. Redemonstration of lymphadenopathy. 7. Redemonstration of left adrenal metastasis. D/ / 11/24/2018 16:02:19 Pia Arnett MD / [facility] Interpreting Provider: Pia Arnett MD - ABG Interpretation ABG results: PT/INR, D-dimer PT 12.8 Seconds (9.4-12.1) H 11/24/18 16:25 Consult Discharge Plan - Plan Referrals: Ish Delgado DO [Primary Care Provider] - 12/06/18 2:00 pm (Please follow-up as scheduled ) Prescriptions: LORazepam Oral Conc [Ativan Oral Conc] 1 mg PO Q4H PRN 7 Days #15 mls PRN Reason: Anxiety OXYCODONE Oral CONC [Oxycodone Oral Conc] 5 mg PO Q4H PRN 7 Days #15 ml PRN Reason: pain/dyspnea
--- NOTE | 2018-11-25 16:02 | Discharge Summary ---
- NOTES TO OUTPATIENT PROVIDER Notes to Outpatient Provider: Patient with a history of metastatic breast cancer with metastases to the lung and lymph nodes was hospitalized here with acute respiratory failure and hypoxia. She was severely dyspneic and tachycardic chronic of having possible pulmonary embolism. However patient could not lay flat to undergo CT angiogram of the chest. As such she was preemptively started on IV heparin and also diuresed with IV Lasix as her chest x-ray showed pulmonary edema. She was also treated for COPD exacerbation. She initially required 15 L O2 supplementation. With aggressive medical management, her symptoms slowly improved. Her chest x-ray also showed right-sided pleural effusion but no fluid was obtained through thoracentesis. Oncology was also consulted to help manage patient's condition given her significant tumor burden. Patient also has atrial fibrillation and had rapid ventricular response due to current use of bronchodilators. After placing her on beta kaushik and Cardizem drip, her heart rate improved. She has been able to be weaned down to 10 L nasal cannula and was to undergo a CT of the angiogram of the chest which showed worsening tumor burden with significant interstitial changes suggestive of carcinomatosis. Oncology discussed this with the patient in conjunction with palliative care and explained that at this time going through chemotherapy/ radiation therapy would be more of a burden for her than offer any benefit. After extensive discussion with family, patient wishes to go home on hospice. This is currently being arranged and patient will be discharged once hospice accepts patient for admission. Orders not resulted at time of discharge: Pending orders 11/23/18 06:00 ECG 12 lead ECG [ECG] AM 0600 11/23/18 08:13 Amylase,Pleural Fluid [BF] Routine LDH,Pleural Fluid [BF] Routine Total Protein,Pleural Fluid [BF] Routine 11/23/18 08:14 Culture,Body Fluid [RM] Routine Gram Stain [RM] Routine 11/23/18 09:52 Cell Count w Diff, Pleural Fld [BF] Routine Date of Encounter: 11/25/18 Time of Encounter: 15:55 - Discharge Diagnosis (1) Acute and chronic respiratory failure Priority: Primary Status: Acute Qualifiers: Qualified Code(s): J96.21 - Acute and chronic respiratory failure with hypoxia (2) Atrial fibrillation Priority: Secondary Status: Acute Qualifiers: Qualified Code(s): I48.0 - Paroxysmal atrial fibrillation (3) Metastatic breast cancer Priority: Secondary Status: Chronic (4) Pleural effusion Priority: Secondary Status: Chronic (5) Pulmonary edema Priority: Secondary Status: Acute Qualifiers: Qualified Code(s): J81.0 - Acute pulmonary edema (6) COPD (chronic obstructive pulmonary disease) Priority: Secondary Status: Acute Qualifiers: Qualified Code(s): J44.1 - Chronic obstructive pulmonary disease with (acute) exacerbation (7) DVT prophylaxis Priority: Secondary Status: Acute Hospital course: Ms. Perez is a 38 year old female Patient with a history of metastatic breast cancer with metastases to the lung and lymph nodes was hospitalized here with acute respiratory failure and hypoxia. She was severely dyspneic and tachycardic chronic of having possible pulmonary embolism. However patient could not lay flat to undergo CT angiogram of the chest. As such she was preemptively started on IV heparin and also diuresed with IV Lasix as her chest x-ray showed pulmonary edema. She was also treated for COPD exacerbation. She initially required 15 L O2 supplementation. With aggressive medical management, her symptoms slowly improved. Her chest x-ray also showed right-sided pleural effusion but no fluid was obtained through thoracentesis. Oncology was also consulted to help manage patient's condition given her significant tumor burden. Patient also has atrial fibrillation and had rapid ventricular response due to current use of bronchodilators. After placing her on beta kaushik and Cardizem drip, her heart rate improved. She has been able to be weaned down to 10 L nasal cannula and was to undergo a CT of the angiogram of the chest which showed worsening tumor burden with significant interstitial changes suggestive of carcinomatosis. Oncology discussed this with the patient in conjunction with palliative care and explained that at this time going through chemotherapy/ radiation therapy would be more of a burden for her than offer any benefit. After extensive discussion with family, patient wishes to go home on hospice. This is currently being arranged and patient will be discharged once hospice accepts patient for admission. Discharge discussed with: patient, family, case management, consultant in ergonomics and safety - Time Spent with Patient Total time spent providing and/or coordinating discharge services: Less than 30 minutes (25 min) - Discharge Medications Prescriptions: GuaiFENesin/Dextromethorphan [Tussin Dm Syrup] 10 ml PO Q4H PRN #1 syrup PRN Reason: Cough LORazepam Oral Conc [Ativan Oral Conc] 1 mg PO Q4H PRN 7 Days #15 mls PRN Reason: Anxiety Metoprolol XL (24 HR) Succ [Toprol Xl] 50 mg PO DAILY #30 tab.er.24h OXYCODONE Oral CONC [Oxycodone Oral Conc] 5 mg PO Q4H PRN 7 Days #15 ml PRN Reason: pain/dyspnea predniSONE [PredniSONE] 10 mg PO DAILY #20 tablet Home Medications: Budesonide/Formoterol 80/4.5 [Symbicort 80/4.5] 1 puff PO BID 11/01/18 [History] Aspirin Enteric Coated [Aspirin EC] 81 mg PO DAILY tablet. 11/06/18 [Rx] Diltiazem CD (24hr) [Cardizem CD] 240 mg PO DAILY #30 cap.er.24h 11/06/18 [Rx] Docusate [Colace] 100 mg PO BID PRN #60 capsule 11/16/18 [Rx] Magnesium Oxide [Magnesium] 400 mg PO DAILY 11/16/18 [History] Ondansetron [Zofran] 8 mg PO Q8HR 30 Days #90 tablet 11/16/18 [Rx] Prochlorperazine Maleate [Compazine] 10 mg PO Q8HR PRN 30 Days #90 tablet 11/16/18 [Rx] Spironolactone [Aldactone] 25 mg PO DAILY 11/16/18 [History] ALPRAZolam [Xanax 0.5 MG Tablet] 0.5 mg PO TID PRN 30 Days #90 tablet 11/22/18 [Rx] HYDROcodone/Acet 7.5/325 mg [[place] 7.5-325 mg] 1 tab PO TID PRN 11/23/18 [History] Levalbuterol Neb [Xopenex Neb] 3 ml IH Q6H 11/23/18 [History] Omeprazole [PriLOSEC] 20 mg PO DAILY 11/23/18 [History] GuaiFENesin/Dextromethorphan [Tussin Dm Syrup] 10 ml PO Q4H PRN #1 syrup 11/25/18 [Rx] LORazepam Oral Conc [Ativan Oral Conc] 1 mg PO Q4H PRN 7 Days #15 mls 11/25/18 [Rx] Metoprolol XL (24 HR) Succ [Toprol Xl] 50 mg PO DAILY #30 tab.er.24h 11/25/18 [Rx] OXYCODONE Oral CONC [Oxycodone Oral Conc] 5 mg PO Q4H PRN 7 Days #15 ml 11/25/18 [Rx] predniSONE [PredniSONE] 10 mg PO DAILY #20 tablet 11/25/18 [Rx] Allergies/Adverse Reactions: Allergy/AdvReac Type Severity Reaction Status Date / Time adhesive tape Allergy Redness of Verified 11/16/18 12:49 Skin Date of admission: 11/22/18 22:27 Primary care physician: Ihs Delgado DO Consults: 11/22/18 22:19 Consult to Interventional Radiology [CONS] Routine Consulting Provider: Radiology Interventional Cols Reason for Consult: diagnostic and therapeutic thoracentesis; may hold heparin drip for two hours before and after thoracentesis. Call Completed: No 11/23/18 14:47 Consult to Oncology [CONS] Routine Consulting Provider: [facility] Reason for Consult: Breast cancer patient with lung mets Call Completed: Yes 11/24/18 12:00 Consult to Palliative Care [CONS] Routine Comment: Consulting Provider: Palliative [facility] Reason for Consult: Breast ca with lung mets; Re advance directives, goals of care Time Notified: 12:01 Call Completed: Yes Discharging clinician: Ashley Gutierrez Anticipated date of discharge: 11/25/18 - Constitutional Vitals: Temp Pulse Resp BP Pulse Ox 98.6 F 110 18 123/80 96 11/25/18 12:14 11/25/18 12:14 11/25/18 12:14 11/25/18 12:14 11/25/18 12:14 General appearance: Present: cooperative, mild distress, A&O X 3, morbidly obese, pleasant, answers questions appropriately Exam: . - Respiratory Respiratory exam: Present: CTAB, prolonged expiratory phase, respiratory distress. Absent: rales, rhonchi, wheezes - Cardiovascular Cardiovascular exam: Present: RRR, +S1, +S2. Absent: diastolic murmur, gallop, rubs, systolic murmur - GI/Abdominal GI/Abdominal exam: Present: normal bowel sounds, soft, no peritoneal signs. Absent: distended, tenderness - Extremities Exam Extremities exam: Present: pedal edema, warm, radial pulses palpable and symmetrical. Absent: calf tenderness, cyanotic - Patient Status Disposition: Hospice - Home Condition: Fair Functional capacity at discharge: wheelchair bound Overall status at discharge: patient is not back to baseline - Discharge Instructions Instructions: Acute Respiratory Distress Syndrome (DC), Atrial Fibrillation (DC), Chronic Obstructive Pulmonary Disease (DC), Anemia (GEN) Follow Up With: Ish Delgado DO [Primary Care Provider] - 12/06/18 2:00 pm (Please follow-up as scheduled ) - Diet and Activity Activity: increase activity as tolerated, wear oxygen at all times Diet: advance to your usual diet
[2018-11-25 16:08] VITALS: BP 127/73
--- NOTE | 2018-11-25 16:09 | Physician Discharge Referral ---
Home Health/Hosp Referral Info Transfer to: Hospice Provider in Charge Post Discharge: [facility] - Diagnosis (1) Acute and chronic respiratory failure Priority: Primary Status: Acute (2) Atrial fibrillation Priority: Secondary Status: Acute (3) Metastatic breast cancer Priority: Secondary Status: Chronic (4) Pleural effusion Priority: Secondary Status: Chronic (5) Pulmonary edema Priority: Secondary Status: Acute (6) COPD (chronic obstructive pulmonary disease) Priority: Secondary Status: Acute (7) DVT prophylaxis Priority: Secondary Status: Acute - Respiratory Orders Oxygen / L per min (10-15) Smoking Cessation: Smoking cessation has been advised. For more information, call the [place] Tobacco Quit Line at 4-156-ATXQ-NOW. - Diet/Nutrition Diet/Nutrition Orders: Regular - Activity Activity Orders: Walker - Services Needed Following services are medically necessary services: Nursing, Home Health Aide - Transfer Medications Prescriptions: GuaiFENesin/Dextromethorphan [Tussin Dm Syrup] 10 ml PO Q4H PRN #1 syrup PRN Reason: Cough LORazepam Oral Conc [Ativan Oral Conc] 1 mg PO Q4H PRN 7 Days #15 mls PRN Reason: Anxiety Metoprolol XL (24 HR) Succ [Toprol Xl] 50 mg PO DAILY #30 tab.er.24h OXYCODONE Oral CONC [Oxycodone Oral Conc] 5 mg PO Q4H PRN 7 Days #15 ml PRN Reason: pain/dyspnea predniSONE [PredniSONE] 10 mg PO DAILY #20 tablet Home Medications: Budesonide/Formoterol 80/4.5 [Symbicort 80/4.5] 1 puff PO BID 11/01/18 [History] Aspirin Enteric Coated [Aspirin EC] 81 mg PO DAILY tablet. 11/06/18 [Rx] Diltiazem CD (24hr) [Cardizem CD] 240 mg PO DAILY #30 cap.er.24h 11/06/18 [Rx] Docusate [Colace] 100 mg PO BID PRN #60 capsule 11/16/18 [Rx] Magnesium Oxide [Magnesium] 400 mg PO DAILY 11/16/18 [History] Ondansetron [Zofran] 8 mg PO Q8HR 30 Days #90 tablet 11/16/18 [Rx] Prochlorperazine Maleate [Compazine] 10 mg PO Q8HR PRN 30 Days #90 tablet 11/16/18 [Rx] Spironolactone [Aldactone] 25 mg PO DAILY 11/16/18 [History] ALPRAZolam [Xanax 0.5 MG Tablet] 0.5 mg PO TID PRN 30 Days #90 tablet 11/22/18 [Rx] HYDROcodone/Acet 7.5/325 mg [[place] 7.5-325 mg] 1 tab PO TID PRN 11/23/18 [History] Levalbuterol Neb [Xopenex Neb] 3 ml IH Q6H 11/23/18 [History] Omeprazole [PriLOSEC] 20 mg PO DAILY 11/23/18 [History] GuaiFENesin/Dextromethorphan [Tussin Dm Syrup] 10 ml PO Q4H PRN #1 syrup 11/25/18 [Rx] LORazepam Oral Conc [Ativan Oral Conc] 1 mg PO Q4H PRN 7 Days #15 mls 11/25/18 [Rx] Metoprolol XL (24 HR) Succ [Toprol Xl] 50 mg PO DAILY #30 tab.er.24h 11/25/18 [Rx] OXYCODONE Oral CONC [Oxycodone Oral Conc] 5 mg PO Q4H PRN 7 Days #15 ml 11/25/18 [Rx] predniSONE [PredniSONE] 10 mg PO DAILY #20 tablet 11/25/18 [Rx] Allergies/Adverse Reactions: Allergy/AdvReac Type Severity Reaction Status Date / Time adhesive tape Allergy Redness of Verified 11/16/18 12:49 Skin Certification: Further, I certify that my clinical findings support that this patient is homebound (i.e. absences from home require considerable and taxing effort and are for medical reasons or mosque services or infrequently or short duration when for other reasons) because: Homebound Reason: Patient requires assistance of a person or device to safely leave home, Severity of cardiac or pulmonary status limits activity tolerance Attestation: My signature below is to certify that this patient is under my care and that I, or nurse practitioner, or a physician's office administrative assistant working with me, has a [id number] encounter with this patient.
[2018-11-25] MEDS ORDERED: *HR* Metoprolol 5 MG/5 ML VIAL IVP PRN (18:11)
[2018-11-25] MEDS ORDERED: Metoprolol XL (24 HR) Succ 50 MG TAB.ER.24H PO ONE (18:12)
[2018-11-26] MEDS ORDERED: Metoprolol XL (24 HR) Succ 50 MG TAB.ER.24H PO SCH (09:00)
== END 2018-11-25 18:50 | disposition hospice, home (50) | DRG 189 ==
LOC: 2ANU 15:59 → EMEROOARM 15:59 → SUATTDRO 22:27 → 2ANU 23:20
PROVIDERS: ADMIT Hospitalist; ATTEND Internal Medicine